=== PATIENT | male | born 1990 | race Caucasian/White ===

== ENCOUNTER 2020-09-14 17:34 | Inpatient (IN) | payer MEDICAID ==
[~2020-09-14] VITALS: Ht 152.4 cm; Wt 142.0 kg
[2020-09-14 17:48] VITALS: BP_SYST 103
[2020-09-14] MEDS ORDERED: NACL 0.9% 1,000 ML IV ONE (20:00)
[2020-09-14 21:28] LABS: BASOPHILS # (AUTO) 0.1 K/uL (0.0-0.2); BASOPHILS % (AUTO) 0.2 % (0.0-2.0); EOSINOPHILS % (AUTO) 0.2 % (0.0-4.0); HEMOGLOBIN 13.9 g/dL (14.0-18.0); LYMPHOCYTES # (AUTO) 1.6 K/uL (1.0-5.5); LYMPHOCYTES % (AUTO) 6.1 % (20.5-51.5); MEAN CORPUSCULAR HEMOGLOBIN 29 pg (27-31); MEAN CORPUSCULAR HGB CONC 33 % (32-36); MEAN CORPUSCULAR VOLUME 87 fL (79.0-98.0); MONOCYTES # (AUTO) 1.2 K/uL (0.0-1.0); MONOCYTES % (AUTO) 4.5 % (1.7-9.3); NEUTROPHILS # (AUTO) 23.7 K/uL (1.8-7.7); PLATELET COUNT (AUTO) 426 K/uL (130-430); RED CELL DISTRIBUTION WIDTH 15.1 % (9.0-15.0); WHITE BLOOD COUNT (AUTO) 26.6 K/uL (4.8-10.8)
[2020-09-14] MEDS ORDERED: cefTRIAXone 1 GM IVPB PREMIX 50 ML IV ONE (21:45)
[2020-09-14] MEDS ORDERED: MORPHINE 4 MG INJ. 4 MG/ML VIAL IVP ONE (21:45)
[2020-09-14] MEDS ORDERED: DIPHENHYDRAMINE INJ 50 MG/ML VIAL IVP ONE (21:45)
[2020-09-14 21:49] LABS: CALCIUM 8.2 mg/dL (8.4-11.0); CREATININE 1.22 mg/dL (0.55-1.30); POTASSIUM 5.1 mmol/L (3.5-5.1)
[2020-09-14 21:55] LABS: ALBUMIN 1.3 g/dL (3.4-4.8); TOTAL BILIRUBIN 0.2 mg/dL (0.0-1.0)
[2020-09-14 21:56] LABS: PROTHROMBIN TIME 9.8 SECS (9.5-12.5)
[2020-09-14] MEDS ORDERED: LOP600 PO (23:29)
[2020-09-14] MEDS ORDERED: METF1000 PO (23:29)
[2020-09-14] MEDS ORDERED: VICTOZA (23:29)
[2020-09-14] MEDS ORDERED: INSU100I26 SQ (23:29)
[2020-09-14] MEDS ORDERED: ASA81 PO (23:29)
[2020-09-14] MEDS ORDERED: INSU100V35 SQ (23:29)
[2020-09-14] MEDS ORDERED: GLIM1TAB18 PO (23:29)
[2020-09-15] MEDS ORDERED: PIPERACILLIN/TAZO 3.38 GM in D5W 50 ML IV ONE (01:00)
[2020-09-15] MEDS ORDERED: VANCOMYCIN HCL 1,000 MG in NS 250 ML IV ONE (01:00)
[2020-09-15] MEDS ORDERED: NS 1000 ML IV.SOLN IV ONE (01:00)
[2020-09-15] MEDS ORDERED: PIPERACILLIN/TAZOBACTAM 3.375 GM/VIAL (ZOSYN) IV ONE (01:17)
[2020-09-15] MEDS ORDERED: NACL 0.9% 1,000 ML IV ONE (01:30)
[2020-09-15] MEDS ORDERED: PIPERACILLIN/TAZO 4.5 GM in NS 100 ML IV SCH (01:30)
[2020-09-15] MEDS ORDERED: VANCOMYCIN HCL 1000 MG/VIAL IV ONE (01:50)
[2020-09-15 03:34] VITALS: BP_SYST 113
[2020-09-15] MEDS: INSULIN REGULAR, HUMAN 100 UNITS/ML, 10 ML VIAL (humuLIN R) SUBCUT PRN ×5 (06:08→21:34)
[2020-09-15] MEDS ORDERED: INSULIN GLARGINE HUM REC ANLOG 15 UNIT SQ SCH (06:45)
[2020-09-15] MEDS ORDERED: [UNRECOGNIZED DRUG - OTHER] SQ SCH (06:45)
[2020-09-15 07:56] LABS: CALCIUM 7.9 mg/dL (8.4-11.0); CREATININE 1.25 mg/dL (0.55-1.30); POTASSIUM 5.4 mmol/L (3.5-5.1)
[2020-09-15] MEDS ORDERED: metFORMIN HCL 500 MG TABLET PO ONE (08:00)
[2020-09-15] MEDS ORDERED: GLIMEPIRIDE 2 MG TABLET PO SCH (08:00)
[2020-09-15] MEDS ORDERED: DEXTROSE 50% JECT 50 ML DISP.SYRIN IVP PRN (08:15)
[2020-09-15] MEDS ORDERED: SODIUM POLYSTYRENE SULFONATE 15 GM/60 ML UDBTL PO ONE (08:15)
[2020-09-15] MEDS ORDERED: ENOXAPARIN SODIUM 40 MG/0.4 ML SYRINGE SUBCUT ONE (08:15)
[2020-09-15 08:16] LABS: HEMOGLOBIN 15.3 g/dL (14.0-18.0); MEAN CORPUSCULAR HEMOGLOBIN 28 pg (27-31); MEAN CORPUSCULAR HGB CONC 32 % (32-36); MEAN CORPUSCULAR VOLUME 88 fL (79.0-98.0); PLATELET COUNT (AUTO) 411 K/uL (130-430); RED BLOOD CELL COUNT(AUTO) 5.47 MIL/uL (4.2-6.2); RED CELL DISTRIBUTION WIDTH 15.1 % (9.0-15.0); WHITE BLOOD COUNT (AUTO) 23.9 K/uL (4.8-10.8)
[2020-09-15] MEDS ORDERED: GLIMEPIRIDE 2 MG TABLET PO ONE (08:30)
[2020-09-15] MEDS ORDERED: ONDANSETRON HCL 4 MG/2 ML VIAL IVP PRN (08:45)
[2020-09-15] MEDS ORDERED: NALOXONE HCL 0.4 MG/ML AMP (NARCAN) IVP PRN (08:45)
[2020-09-15] MEDS ORDERED: ACETAMINOPHEN 325 MG TABLET PO PRN (08:45)
[2020-09-15] MEDS ORDERED: traMADol HCL HCL 50 MG TABLET (ULTRAM) PO PRN (08:45)
[2020-09-15 08:49] LABS: BAND % (MANUAL) 17 % (0-6); LYMPHOCYTES % (MANUAL) 7 % (20-46); MONOCYTES % (MANUAL) 4 % (0-11)
[2020-09-15 08:50] LABS: BASOPHILS % (MANUAL) 0 % (0-2); EOSINOPHILS % (MANUAL) 0 % (0-7); METAMYELOCYTES % 3 % (0-0)
[2020-09-15 09:00] VITALS: BP_SYST 113
[2020-09-15] MEDS ORDERED: VANCOMYCIN HCL 1,750 MG in NS 500 ML IV SCH (09:00)
[2020-09-15] MEDS ORDERED: DOCUSATE SODIUM 250 MG CAPSULE PO ONE (09:00)
[2020-09-15] MEDS: MORPHINE 2 MG/ML INJ. SYRINGE IVP PRN ×3 (09:24→22:14)
[2020-09-15] MEDS: ASPIRIN 81 MG TAB.CHEW PO SCH (09:29)
[2020-09-15 09:31] LABS: PROTHROMBIN TIME 10.3 SECS (9.5-12.5)
[2020-09-15] MEDS: GEMFIBROZIL 600 MG TABLET (LOPID) PO SCH ×2 (09:31→21:28)
[2020-09-15] MEDS: NACL 0.9% 1,000 ML IV SCH ×3 (09:34→21:31)
[2020-09-15] MEDS ORDERED: PIPERACILLIN/TAZO 4.5 GM in NS 100 ML IV ONE (11:00)
[2020-09-15] MEDS ORDERED: metroNIDAZOLE 500 mg/NS 100 ML IV ONE (11:30)
[2020-09-15 12:08] VITALS: BP_SYST 102
[2020-09-15 16:09] VITALS: BP_SYST 148
[2020-09-15] MEDS ORDERED: BALSAM PERU/CASTOR OIL 60 GM OINT...G. TP ONE (17:00)
[2020-09-15] MEDS: GLIMEPIRIDE 2 MG TABLET PO SCH (17:34)
[2020-09-15] MEDS: metFORMIN HCL 500 MG TABLET PO SCH (17:35)
[2020-09-15 20:00] VITALS: BP_SYST 106
[2020-09-15] MEDS: DOCUSATE SODIUM 250 MG CAPSULE PO SCH (21:00)
[2020-09-15] MEDS: LINEZOLID 300 ML IV SCH (21:28)
[2020-09-15] MEDS: ENOXAPARIN SODIUM 40 MG/0.4 ML SYRINGE SUBCUT SCH (21:35)
[2020-09-15] MEDS ORDERED: PIPERACILLIN/TAZOBACTAM 4.5 GM/VIAL (ZOSYN) IV ONE (21:59)
[2020-09-15] MEDS: PIPERACILLIN/TAZO 4.5 GM in NS 100 ML IV SCH (23:24)
[2020-09-16] VITALS: BP_SYST 123
[2020-09-16] MEDS ORDERED: metroNIDAZOLE 500 mg/NS 100 ML IV SCH
[2020-09-16] MEDS: INSULIN REGULAR, HUMAN 100 UNITS/ML, 10 ML VIAL (humuLIN R) SUBCUT PRN ×6 (01:12→22:13)
[2020-09-16] MEDS: NACL 0.9% 1,000 ML IV SCH ×3 (04:30→18:12)
[2020-09-16] MEDS: MORPHINE 2 MG/ML INJ. SYRINGE IVP PRN ×4 (04:47→21:57)
[2020-09-16 06:19] LABS: BASOPHILS % (AUTO) 0.2 % (0.0-2.0); EOSINOPHILS # (AUTO) 0.1 K/uL (0.0-0.4); EOSINOPHILS % (AUTO) 0.4 % (0.0-4.0); HEMATOCRIT 35.7 % (36-54); HEMOGLOBIN 11.3 g/dL (14.0-18.0); LYMPHOCYTES # (AUTO) 1.8 K/uL (1.0-5.5); LYMPHOCYTES % (AUTO) 7.6 % (20.5-51.5); MEAN CORPUSCULAR HEMOGLOBIN 28 pg (27-31); MEAN CORPUSCULAR HGB CONC 32 % (32-36); MEAN CORPUSCULAR VOLUME 88 fL (79.0-98.0); MONOCYTES # (AUTO) 0.9 K/uL (0.0-1.0); MONOCYTES % (AUTO) 3.7 % (1.7-9.3); NEUTROPHILS # (AUTO) 20.9 K/uL (1.8-7.7); PLATELET COUNT (AUTO) 335 K/uL (130-430); RED BLOOD CELL COUNT(AUTO) 4.08 MIL/uL (4.2-6.2); RED CELL DISTRIBUTION WIDTH 15.4 % (9.0-15.0); WHITE BLOOD COUNT (AUTO) 23.7 K/uL (4.8-10.8)
[2020-09-16 06:20] LABS: ALBUMIN 0.8 g/dL (3.4-4.8); CALCIUM 7.1 mg/dL (8.4-11.0); CREATININE 0.73 mg/dL (0.55-1.30); POTASSIUM 4.4 mmol/L (3.5-5.1); TOTAL BILIRUBIN 0.3 mg/dL (0.0-1.0)
[2020-09-16] MEDS: GLIMEPIRIDE 2 MG TABLET PO SCH ×2 (06:49→16:56)
[2020-09-16] MEDS: PIPERACILLIN/TAZO 4.5 GM in NS 100 ML IV SCH ×2 (06:51→14:14)
[2020-09-16 07:47] LABS: NEUTROPHILS % (AUTO) 88.1 % (40.0-70.0)
[2020-09-16 08:19] VITALS: BP_SYST 105
[2020-09-16] MEDS: LINEZOLID 300 ML IV SCH ×2 (08:46→21:53)
[2020-09-16] MEDS: metFORMIN HCL 500 MG TABLET PO SCH ×2 (08:46→18:11)
[2020-09-16] MEDS: GEMFIBROZIL 600 MG TABLET (LOPID) PO SCH ×2 (08:46→21:50)
[2020-09-16] MEDS: ASPIRIN 81 MG TAB.CHEW PO SCH (08:46)
[2020-09-16] MEDS: DOCUSATE SODIUM 250 MG CAPSULE PO SCH ×2 (08:46→21:50)
[2020-09-16] MEDS ORDERED: BALSAM PERU/CASTOR OIL 60 GM OINT...G. TP SCH (09:00)
[2020-09-16 12:00] VITALS: BP_SYST 113
[2020-09-16 16:30] VITALS: BP_SYST 102
[2020-09-16 19:37] VITALS: BP_SYST 137
[2020-09-16] MEDS ORDERED: INSULIN GLARGINE 100 UNITS/ML 10 ML VIAL SUBCUT SCH (21:00)
[2020-09-16] MEDS: ENOXAPARIN SODIUM 40 MG/0.4 ML SYRINGE SUBCUT SCH (21:56)
[2020-09-17 00:43] VITALS: BP_SYST 143
[2020-09-17] MEDS: NACL 0.9% 1,000 ML IV SCH (00:55)
[2020-09-17] MEDS: PIPERACILLIN/TAZO 4.5 GM in NS 100 ML IV SCH (00:56)
[2020-09-17 01:47] VITALS: BP_SYST 131
[2020-09-17] MEDS ORDERED: INSULIN GLARGINE 100 UNITS/ML 10 ML VIAL SUBCUT SCH (09:00)
== END 2020-09-17 02:44 | disposition short-term general hospital (02) | DRG 720 ==
LOC: SED 17:34 → STU 09-15 01:24
PROVIDERS: ADMIT Internal Medicine; ATTEND Internal Medicine
DX: A41.9 Sepsis, unspecified organism (principal); M72.6 Necrotizing fasciitis; E43 Unspecified severe protein-calorie malnutrition; E11.65 Type 2 diabetes mellitus with hyperglycemia; L02.211 Cutaneous abscess of abdominal wall; L03.311 Cellulitis of abdominal wall; E66.01 Morbid (severe) obesity due to excess calories; E87.5 Hyperkalemia; K57.90 Diverticulosis of intestine, part unspecified, without perforation or abscess without bleeding; S30.821A Blister (nonthermal) of abdominal wall, initial encounter; X58.XXXA Exposure to other specified factors, initial encounter; M79.3 Panniculitis, unspecified; Z20.822 Contact with and (suspected) exposure to COVID-19; Z79.82 Long term (current) use of aspirin; Z79.899 Other long term (current) drug therapy; Y93.89 Activity, other specified; Y92.89 Other specified places as the place of occurrence of the external cause; Y99.8 Other external cause status; Z90.49 Acquired absence of other specified parts of digestive tract; Z79.4 Long term (current) use of insulin; Z68.41 Body mass index [BMI] 40.0-44.9, adult
CPT/HCPCS: 36415; 76376; 80048; 80053; 82962; 83605; 85007; 85025; 85027; 85610-TC; 85730-TC; 87040-TC; 87070-TC; 87081; 96361; 96365; 96366; 96367; 96375; 99285; C1751; G0378; J0696; J1200; J1650; J1815; J2020; J2270; J2543; J3370; J3490; J7030; J7040